=== PATIENT | male | born 1960 | race Caucasian/White ===

== ENCOUNTER 2022-06-06 18:52 | Inpatient (IN) ==
[2022-06-06] MEDS ORDERED: ASPIRIN 325 MG TABLET PO STA (19:14)
[2022-06-06 19:29] LABS: Basophils % 0.3 % (0.0-0.8); Eosinophils # 0.2 10*3/uL (0.0-0.87); Eosinophils % 1.4 % (0.00-10.9); Hemoglobin 16.7 GM/DL (14.0-18.0); Immature Granulocytes % 0.6 %; Immature Granulocytes Absolute 0.08 #; Lymphocytes # 2.1 10*3/uL (1.4-4.0); Mean Corpuscular HGB Conc 34.8 GM/DL (32-36); Mean Corpuscular Volume 94.1 FL (87-102); Mean Platelet Volume 9.6 FL (9.6-12.0); Monocytes # 1.2 10*3/uL (0.11-0.8); Monocytes % 8.9 % (1.7-12.7); Neutrophils % 72.8 % (38.7-73.9); Platelet Count 217 T/CUMM (130-400); Red Cell Distribution Width 13.8 % (9.3-17.3); White Blood Count 12.9 T/CUMM (4-12)
[2022-06-06] MEDS: NITROGLYCERIN SL 0.4 MG TABLET SL PRN ×2 (19:40→20:10)
[2022-06-06 19:52] LABS: Albumin 3.3 G/DL (3.4-5.0); Bilirubin,Total 0.5 MG/DL (0.20-1.00); Calcium 8.4 MG/DL (8.5-10.1); Osmolality,Calculated 278.4 MOS/KG (273-304); Potassium 3.6 MMOL/L (3.5-5.1); Total Protein 5.9 G/DL (6.4-8.2)
[2022-06-06] MEDS ORDERED: NITROGLYCERIN SL 0.4 MG TABLET SL PRN (20:04)
[2022-06-06] MEDS ORDERED: GLUCAGON 1 MG VIAL IM PRN (21:51)
[2022-06-06] MEDS ORDERED: ACETAMINOPHEN 325 MG TABLET PO PRN (21:56)
[2022-06-06] MEDS ORDERED: ONDANSETRON 4 MG/2 ML VIAL IV PRN (21:56)
[2022-06-06] MEDS ORDERED: DEXTROSE 10% 250 ML BAG IV PRN (22:23)
[2022-06-06] MEDS ORDERED: PANTOPRAZOLE 40 MG TABLET PO ONE (23:45)
[2022-06-06] MEDS: ENOXAPARIN 40 MG/0.4 ML SYRINGE SUBCUT SCH (23:54)
[2022-06-06] MEDS: LACTATED RINGERS 1,000 ML IV SCH (23:54)
[2022-06-07] MEDS ORDERED: INSULIN REGULAR 100 UNIT/ML SUBCUT ONE (00:30)
[2022-06-07 01:00] LABS: Risk Ratio 3.9; Thyroid Stimulating Hormone 1.58 uIU/ml (0.358-3.74); VLDL Cholesterol 33.2 MG/DL
[2022-06-07 01:13] LABS: Basophils % 0.3 % (0.0-0.8); Eosinophils # 0.3 10*3/uL (0.0-0.87); Eosinophils % 2.5 % (0.00-10.9); Hemoglobin 14.8 GM/DL (14.0-18.0); Immature Granulocytes % 0.4 %; Immature Granulocytes Absolute 0.05 #; Lymphocytes # 2.3 10*3/uL (1.4-4.0); Mean Corpuscular HGB Conc 34.4 GM/DL (32-36); Mean Corpuscular Volume 94.5 FL (87-102); Mean Platelet Volume 9.8 FL (9.6-12.0); Monocytes # 0.9 10*3/uL (0.11-0.8); Monocytes % 7.5 % (1.7-12.7); Neutrophils % 69.3 % (38.7-73.9); Platelet Count 206 T/CUMM (130-400); Red Blood Count 4.55 MC/CUMM (3.8-5.5); Red Cell Distribution Width 13.9 % (9.3-17.3); White Blood Count 11.5 T/CUMM (4-12)
[2022-06-07 01:53] LABS: Albumin 2.9 G/DL (3.4-5.0); Bilirubin,Total 0.5 MG/DL (0.20-1.00); Calcium 8.5 MG/DL (8.5-10.1); Osmolality,Calculated 280.5 MOS/KG (273-304); Potassium 3.1 MMOL/L (3.5-5.1); Total Protein 5.4 G/DL (6.4-8.2)
[2022-06-07] MEDS: INSULIN LISPRO 100 UNIT/ML SUBCUT SCH ×4 (07:30→20:41)
[2022-06-07] MEDS: VALSARTAN 80 MG TABLET PO SCH (08:29)
[2022-06-07] MEDS: ASPIRIN EC 325 MG TABLET PO SCH (08:29)
[2022-06-07] MEDS: PANTOPRAZOLE 40 MG TABLET PO SCH (08:29)
[2022-06-07] MEDS: BACLOFEN 10 MG TABLET PO SCH ×2 (08:29→20:42)
[2022-06-07] MEDS: tiZANidine 4 MG TABLET PO SCH ×2 (08:30→20:42)
[2022-06-07] MEDS: SERTRALINE 50 MG TABLET PO SCH (08:30)
[2022-06-07] MEDS: CETIRIZINE 10 MG TABLET PO SCH (08:30)
[2022-06-07] MEDS ORDERED: POTASSIUM CHLORIDE 20 MEQ TABLET PO ONE (08:40)
[2022-06-07] MEDS ORDERED: ALUM/MAG/SIMETH/LIDO VISC 1:1 30 ML BOTTLE PO ONE (08:49)
[2022-06-07] MEDS ORDERED: ATORVASTATIN 20 MG TABLET PO SCH (09:00)
[2022-06-07] MEDS: LACTATED RINGERS 1,000 ML IV SCH (12:03)
[2022-06-07] MEDS ORDERED: ISOSORBIDE MONONITRATE 30 MG TABLET PO SCH (13:15)
[2022-06-07] MEDS: METOPROLOL SUCCINATE XL 25 MG TABLET PO SCH (13:41)
[2022-06-07] MEDS ORDERED: ATORVASTATIN 40 MG TABLET PO SCH (21:00)
[2022-06-07] MEDS: ENOXAPARIN 40 MG/0.4 ML SYRINGE SUBCUT SCH (22:35)
[2022-06-08 04:56] LABS: Basophils % 0.5 % (0.0-0.8); Eosinophils # 0.2 10*3/uL (0.0-0.87); Eosinophils % 3.8 % (0.00-10.9); Hematocrit 40.4 VOL% (42.0-52.0); Hemoglobin 13.6 GM/DL (14.0-18.0); Immature Granulocytes % 0.8 %; Immature Granulocytes Absolute 0.05 #; Lymphocytes # 1.9 10*3/uL (1.4-4.0); Lymphocytes % 31.1 % (21.2-54.2); Mean Corpuscular HGB Conc 33.7 GM/DL (32-36); Mean Corpuscular Volume 96.2 FL (87-102); Monocytes # 0.7 10*3/uL (0.11-0.8); Neutrophils % 51.8 % (38.7-73.9); Platelet Count 168 T/CUMM (130-400)
[2022-06-08 05:08] LABS: Calcium 8.4 MG/DL (8.5-10.1); Potassium 3.8 MMOL/L (3.5-5.1)
[2022-06-08] MEDS: AZITHROMYCIN INJ 500 MG in SODIUM CHLORIDE 0.9% 250 ML IV SCH (05:35)
[2022-06-08] MEDS: BACLOFEN 10 MG TABLET PO SCH ×2 (08:22→22:10)
[2022-06-08] MEDS: tiZANidine 4 MG TABLET PO SCH ×2 (08:22→22:10)
[2022-06-08] MEDS: VALSARTAN 80 MG TABLET PO SCH (08:22)
[2022-06-08] MEDS: ASPIRIN EC 325 MG TABLET PO SCH (08:22)
[2022-06-08] MEDS: CETIRIZINE 10 MG TABLET PO SCH (08:23)
[2022-06-08] MEDS: SERTRALINE 50 MG TABLET PO SCH (08:23)
[2022-06-08] MEDS: METOPROLOL SUCCINATE XL 25 MG TABLET PO SCH (08:23)
[2022-06-08] MEDS: PANTOPRAZOLE 40 MG TABLET PO SCH (08:23)
[2022-06-08] MEDS: INSULIN LISPRO 100 UNIT/ML SUBCUT SCH ×4 (08:23→22:13)
[2022-06-08] MEDS: HYDROcod/ACETAMIN 7.5-325 MG/15 ML UDCUP PO SCH ×2 (08:36→18:38)
[2022-06-08] MEDS: buPROPion SR 150 MG TABLET PO SCH (08:56)
[2022-06-08] MEDS ORDERED: GLUCAGON 1 MG VIAL IM PRN (09:05)
[2022-06-08] MEDS ORDERED: DEXTROSE 10% 250 ML BAG IV PRN (09:05)
[2022-06-08] MEDS ORDERED: MAGNESIUM SULF RIDER 2 GM/50 ML PREMIX IV PRN (09:57)
[2022-06-08] MEDS ORDERED: POTASSIUM CHLORIDE RIDER 10 MEQ/100 ML PREMIX IV PRN (09:57)
[2022-06-08] MEDS ORDERED: AMITRIPTYLINE 50 MG TABLET PO SCH (21:00)
[2022-06-08] MEDS ORDERED: ATORVASTATIN 40 MG TABLET PO SCH (21:00)
[2022-06-08] MEDS: ENOXAPARIN 40 MG/0.4 ML SYRINGE SUBCUT SCH (22:12)
[2022-06-09] MEDS: HYDROcod/ACETAMIN 7.5-325 MG/15 ML UDCUP PO SCH ×3 (00:09→16:59)
[2022-06-09 05:12] LABS: Basophils % 0.7 % (0.0-0.8); Eosinophils # 0.3 10*3/uL (0.0-0.87); Eosinophils % 4.4 % (0.00-10.9); Hematocrit 41.1 VOL% (42.0-52.0); Hemoglobin 13.9 GM/DL (14.0-18.0); Immature Granulocytes % 0.5 %; Immature Granulocytes Absolute 0.03 #; Lymphocytes # 1.8 10*3/uL (1.4-4.0); Lymphocytes % 32.2 % (21.2-54.2); Mean Corpuscular HGB Conc 33.8 GM/DL (32-36); Mean Platelet Volume 9.9 FL (9.6-12.0); Monocytes # 0.7 10*3/uL (0.11-0.8); Monocytes % 11.8 % (1.7-12.7); Neutrophils % 50.4 % (38.7-73.9); Platelet Count 191 T/CUMM (130-400); Red Blood Count 4.28 MC/CUMM (3.8-5.5); Red Cell Distribution Width 14.4 % (9.3-17.3); White Blood Count 5.7 T/CUMM (4-12)
[2022-06-09 05:32] LABS: Calcium 8.5 MG/DL (8.5-10.1); Osmolality,Calculated 281.8 MOS/KG (273-304)
[2022-06-09] MEDS ORDERED: SODIUM CHLORIDE 0.45% 1,000 ML IV SCH (07:30)
[2022-06-09] MEDS: AZITHROMYCIN INJ 500 MG in SODIUM CHLORIDE 0.9% 250 ML IV SCH (08:00)
[2022-06-09] MEDS: INSULIN LISPRO 100 UNIT/ML SUBCUT SCH ×3 (09:14→16:58)
[2022-06-09] MEDS ORDERED: DIAZEPAM 5 MG TABLET PO ONE (10:00)
[2022-06-09] MEDS ORDERED: diphenhydrAMINE CAP 50 MG CAPSULE PO ONE (10:00)
[2022-06-09] MEDS ORDERED: HEPARIN/NACL 0.9% 2 UNITS/ML 2,000 UNIT/1,000 ML BAG IV ONE (10:47)
[2022-06-09] MEDS ORDERED: VERAPAMIL 5 MG/2 ML VIAL ONE (11:32)
[2022-06-09] MEDS ORDERED: NITROGLYCERIN DRIP 50 MG/250 ML BOTTLE IV ONE (11:32)
[2022-06-09] MEDS ORDERED: fentaNYL 100 MCG/2 ML VIAL ONE (11:35)
[2022-06-09] MEDS ORDERED: MIDAZOLAM 2 MG/2 ML VIAL ONE (11:35)
[2022-06-09] MEDS ORDERED: ENOXAPARIN 60 MG/0.6 ML SYRINGE ONE (11:44)
[2022-06-09] MEDS: ASPIRIN EC 325 MG TABLET PO SCH (12:57)
[2022-06-09] MEDS: VALSARTAN 80 MG TABLET PO SCH (12:58)
[2022-06-09] MEDS: PANTOPRAZOLE 40 MG TABLET PO SCH (12:58)
[2022-06-09] MEDS: BACLOFEN 10 MG TABLET PO SCH (12:58)
[2022-06-09] MEDS: METOPROLOL SUCCINATE XL 25 MG TABLET PO SCH (12:58)
[2022-06-09] MEDS: buPROPion SR 150 MG TABLET PO SCH (12:58)
[2022-06-09] MEDS: tiZANidine 4 MG TABLET PO SCH (12:59)
[2022-06-09] MEDS: CETIRIZINE 10 MG TABLET PO SCH (12:59)
[2022-06-09] MEDS: SERTRALINE 50 MG TABLET PO SCH (12:59)
[2022-06-09 17:00] VITALS: BP 144/85
[2022-06-10] MEDS ORDERED: AZITHROMYCIN 250 MG TABLET PO SCH (09:00)
== END 2022-06-09 18:02 | disposition home or self-care (01) | DRG 287 ==
LOC: N.EDINP 18:52 → N.ED 18:52 → SUATTDRO 21:51 → N.EDINP 22:20 → N.2W 22:42 → SUATTDRO 06-08 09:34 → N.5E 06-08 14:38
PROVIDERS: ADMIT Hospitalist; ATTEND Internal Medicine
PROC: CLCCHCL (ICD-10-PCS; 2022-06-09 11:45)